=== PATIENT | male | born 1960 | race Caucasian/White ===

== ENCOUNTER 2019-07-10 09:06 | Day surgery (SDC) | payer OTHER ==
[~2019-07-10] VITALS: Ht 188 cm; Wt 77.1 kg
[2019-07-10] MEDS ORDERED: ASPI-1884 PO (10:32)
[2019-07-10] MEDS ORDERED: METF-350 PO (10:38)
[2019-07-10] MEDS ORDERED: ASPI81EC97 PO (10:38)
[2019-07-10] MEDS ORDERED: METO25TE71 PO (10:38)
[2019-07-10] MEDS ORDERED: SIMV10TA93 PO (10:38)
[2019-07-10] MEDS ORDERED: LISI2.5T5 PO (10:38)
[2019-07-10] MEDS ORDERED: MIDAZOLAM 2 MG/2 ML VIAL ONE (10:39)
[2019-07-10] MEDS ORDERED: fentaNYL 0.05 MG/ML VIAL ONE (10:39)
[2019-07-10] MEDS ORDERED: MIDAZOLAM 2 MG/2 ML VIAL IVP ONE (10:55)
[2019-07-10] MEDS ORDERED: fentaNYL 0.05 MG/ML VIAL IVP ONE (10:57)
[2019-07-10] MEDS ORDERED: LIDOCAINE 2% 100 MG/5 ML UJET TP ONE (12:44)
== END 2019-07-10 13:55 | disposition home or self-care (01) ==
LOC: MOR 09:06 → MMU 09:10 → MOR 13:55
PROVIDERS: ATTEND Internal Medicine Gastroenterology
DX: Z08 Encounter for follow-up examination after completed treatment for malignant neoplasm (principal); D12.0 Benign neoplasm of cecum; K62.1 Rectal polyp; K57.30 Diverticulosis of large intestine without perforation or abscess without bleeding; I10 Essential (primary) hypertension; E11.9 Type 2 diabetes mellitus without complications; Z90.49 Acquired absence of other specified parts of digestive tract; Z98.0 Intestinal bypass and anastomosis status; Z85.038 Personal history of other malignant neoplasm of large intestine; Z79.82 Long term (current) use of aspirin; Z79.84 Long term (current) use of oral hypoglycemic drugs; Z79.899 Other long term (current) drug therapy; Z87.891 Personal history of nicotine dependence
CPT/HCPCS: 44394; 45385; J2250; J3010; 44388

== ENCOUNTER 2020-10-28 08:24 | Day surgery (SDC) | payer OTHER, SELFPAY ==
[~2020-10-28] VITALS: Ht 188 cm; Wt 86.2 kg
[~2020-10-28 08:24] MED LIST: ASPI81EC97 PO; LISI2.5T5 PO; METF-350 PO; METO25TE71 PO; SIMV10TA93 PO
[2020-10-28] MEDS ORDERED: diphenhydrAMINE 50 MG/ML VIAL ONE (10:42)
[2020-10-28] MEDS ORDERED: MIDAZOLAM 5 MG/5 ML VIAL ONE (10:42)
[2020-10-28] MEDS ORDERED: LIDOCAINE 2% 100 MG/5 ML UJET TP ONE (10:42)
[2020-10-28] MEDS ORDERED: fentaNYL citrate 0.05 MG/ML VIAL ONE ×2 (10:42)
[2020-10-28] MEDS ORDERED: MIDAZOLAM 2 MG/2 ML VIAL IVP ONE (12:30)
[2020-10-28] MEDS ORDERED: diphenhydrAMINE 50 MG/ML VIAL IVP ONE (12:30)
[2020-10-28] MEDS ORDERED: fentaNYL citrate 0.05 MG/ML VIAL IVP ONE (12:30)
== END 2020-10-28 14:10 | disposition home or self-care (01) ==
LOC: MDS 08:24 → MMU 08:26 → MDS 14:10
PROVIDERS: ATTEND Internal Medicine Gastroenterology
DX: Z12.11 Encounter for screening for malignant neoplasm of colon (principal); K63.5 Polyp of colon; K57.30 Diverticulosis of large intestine without perforation or abscess without bleeding; Z86.010 Personal history of colon polyps; I10 Essential (primary) hypertension; E78.5 Hyperlipidemia, unspecified; E11.9 Type 2 diabetes mellitus without complications; I25.2 Old myocardial infarction; Z95.5 Presence of coronary angioplasty implant and graft; Z79.84 Long term (current) use of oral hypoglycemic drugs; Z79.899 Other long term (current) drug therapy
CPT/HCPCS: 45385; 87426; J1200; J2250; J3010